=== PATIENT | male | born 1995 | race Two or more races ===

== ENCOUNTER 2018-11-13 14:17 | Emergency (ER) | payer OTHER ==
[~2018-11-13] VITALS: Ht 182.9 cm; Wt 95.5 kg
[2018-11-13 17:00] VITALS: BP 148/92
== END 2018-11-13 17:10 | disposition home or self-care (01) ==
LOC: EMS 14:22
DX: R61 Generalized hyperhidrosis (principal); F17.210 Nicotine dependence, cigarettes, uncomplicated; F11.90 Opioid use, unspecified, uncomplicated; Z11.1 Encounter for screening for respiratory tuberculosis
CPT/HCPCS: 99406